=== PATIENT | male | born 2000 | race Two or more races ===

== ENCOUNTER 2022-06-18 21:15 | Emergency (ER) | payer MEDICAID ==
[~2022-06-18] VITALS: Ht 177.8 cm; Wt 65.7 kg
[2022-06-18 21:37] VITALS: BP 128/88
== END 2022-06-18 21:43 | disposition left against medical advice (07) ==
LOC: EDBD 21:15 → ER 21:15
DX: T65.891A Toxic effect of other specified substances, accidental (unintentional), initial encounter (principal); R55 Syncope and collapse; Y92.89 Other specified places as the place of occurrence of the external cause

== ENCOUNTER 2025-05-07 11:03 | Inpatient (IN) | payer MEDICAID ==
[~2025-05-07] VITALS: Ht 177.8 cm; Wt 79.0 kg
[2025-05-07 11:33] VITALS: PULSE 84; RESP 19; O2SAT 96
[2025-05-07] MEDS: ONDANSETRON HCL 4 MG/2 ML VIAL IV ONE ×2 (11:39→15:07)
[2025-05-07] MEDS: MORPHINE SULFATE 4 MG/ML SYR/VIAL IV ONE (11:40)
[2025-05-07] MEDS: SODIUM CHLORIDE 0.9% 1,000 ML IV ONE ×2 (11:41→16:36)
--- NOTE | 2025-05-07 12:12 | DVH ---
tEXAM DESCRIPTION: CT CT AB PEL WO CON-NO ORAL OR IV CLINICAL HISTORY: pancreatitis COMPARISON: None TECHNIQUE: CT abdomen and pelvis without IV contrast was performed. Coronal and sagittal MPR images were generat ed.CTDI/ DLP = / Dose reduction technique with one or more of the following methods was performed: Automated exposure control, adjustment of the mA and/or kV according to patient size, use of iterative reconstruction [place] FINDINGS: Lower chest: Trace left pleural fusion with left basilar subsegmental atelectasis. Liver: Homogenous in attenuation. . Biliary: High density material in the gallbladder, likely vicarious excretion of contrast. Gallbladd er is relatively decompressed. No biliary ductal dilatation. Pancreas: The pancreas is mildly edematous and there is mild peripancreatic fat stranding. Spleen: Normal in size.. Adrenal glands: No nodularity. Kidneys: No nephrolithiasis. No hydroureteronephrosis. . Bladder: No bladder wall thickening. Excreted contrast material in the urinary bladder. Reproductive organs: Normal. Bowel: No bowel wall thickening or dilatation. . Peritoneum: Trace free fluid No free air. Vessels: Normal caliber abdominal aorta. . Lymph nodes: No suspicious lymph nodes. Soft tissues: Unremarkable. . Osseous structures: No acute fracture or subluxation. No suspicious osseous lesions. IMPRESSION: 1. Findings suspicious for acute pancreatitis. Recommend correlation with lipase levels. 2. Trace ascites. 3. Left basilar subsegmental atelectasis with trace left pleural fusion.
[2025-05-07 12:18] LABS: Hematocrit 44.0 % (41.0-53.0); Hemoglobin 15.1 g/dL (13.5-17.5); Mean Corpuscular Hemoglobin 32.8 pg (28.0-32.0); Mean Corpuscular Volume 95.7 fL (80.0-100.0); Nucleated Red Blood Cells % 0.1 %
[2025-05-07 12:38] LABS: Albumin 4.6 g/dL (3.2-4.8); Alkaline Phosphatase 95 U/L (46-116); Anion Gap 12 (5-15); BUN/Creatinine Ratio 8.8 (10.0-20.0); Calcium 9.1 mg/dL (8.7-10.4); Carbon Dioxide 21 mmol/L (20-31); Chloride 102 mmol/L (98-107); Total Protein 6.9 g/dL (5.7-8.2)
[2025-05-07 12:39] LABS: Alanine Aminotransferase 168 U/L (7-40); Blood Urea Nitrogen 7 mg/dL (9-23); Glucose 173 mg/dL (74-106); Lipase 113 U/L (12-53); Potassium 3.3 mmol/L (3.5-5.1); Sodium 135 mmol/L (136-145)
[2025-05-07 12:42] LABS: Bilirubin, Total 3.1 mg/dL (0.2-1.0)
[2025-05-07 14:33] LABS: Urine Protein, UAD Negative (Negative)
--- NOTE | 2025-05-07 14:46 | ED.PDOC ---
GI ASSESSMENT HPI Comments 24-year-old male with no significant past medical history presenting complaining of upper abdominal pain for the last 2 days, associated with nausea and constipation. States he was at [facility] yesterday and was diagnosed with pancreatitis. He does not have [facility] insurance, so recommended for transfer and hospital admission, however he stated he would prefer to be discharged and go to a hospital here where he lives. Pain is localized in the epigastric and left upper quadrant areas, aching and severe. Denies fever, diarrhea or dysuria. Chief Complaint: Abdominal Pain Time Seen by MD: 11:15 Allergies: Coded Allergies: NO KNOWN ALLERGIES (Unverified , 06/18/22) Mode of Arrival: Ambulatory Past Medical History PAST MEDICAL HISTORY: Denies Surgical History: Denies all surgeries Family History Family History: Reviewed,noncontributory to illness Social History Smoker: Other (Positive for vaping) Alcohol: Heavy Drugs: Denies Drug Use Lives In: Home All Other Systems: Reviewed and Negative (Comprehensive systems review obtained and negative except for what is stated in the HPI.) Physical Exam General Appearance: Mild Distress HEENT: Other (Pupils and face symmetric. Moist mucous membranes.) Neck: Full Range of Motion, Normal Inspection Respiratory: Decreased Breath Sounds, No Accessory Muscle Use, No Respiratory Distress, Normal Breath Sounds Cardiovascular: No Edema, No JVD, Regular Rate/Rhythm Breast Exam: Deferred Gastrointestinal: Epigastric, LUQ, Soft, Tenderness Genitalia: Deferred Pelvic: Deferred Rectal: Deferred Extremities: Normal inspection, Normal range of motion, Non-tender, No pedal edema Neurologic: Alert (Oriented x4), Normal Affect, Normal Mood, Other (Ambulatory without difficulty) Cerebellar Function: NOT DONE Reflexes: NOT DONE Skin: Dry, Normal Color, Warm Lymphatic: NOT DONE Was a procedure done? Was a procedure done?: No GI differential Dx Differential Diagnosis: Cholecystitis, Diverticular disease, Gastritis/PUD, Gastroenteritis, Hepatitis, Inflammatory BD, Pancreatitis, UTI, Dehydration, Electrolyte Imbalance, Bacterial, Viral (Biliary obstruction, among others), Renal Failure, Stress Ulcer X-Ray, Labs, Meds, VS Vital Signs Date Time Temp Pulse Resp B/P (MAP) Pulse Ox O2 Delivery O2 Flow Rate FiO2 05/07/25 14:24 85 22 128/75 (92) 97 05/07/25 12:10 94 16 129/64 05/07/25 12:00 94 16 129/64 (85) 97 05/07/25 12:00 99 Room Air* 0 21 05/07/25 11:48 97.7 81 16 133/74 (93) 97 97.7 05/07/25 11:40 84 18 154/79 05/07/25 11:33 84 19 96 Room Air* 0 21 05/07/25 11:04 98.0 106 16 154/79 97 98.0 Lab Test 05/07/25 14:15 05/07/25 12:26 05/07/25 11:26 Range/Units Urine Color Light-yellow Yellow Urine Clarity Clear Clear Urine pH 6.0 5.0-9.0 Urine Specific [place] 1.010 1.001-1.035 Urine Protein Negative Negative Urine Ketones Trace Negative Urine Blood Negative Negative /uL Urine Nitrite Negative Negative Urine Bilirubin Negative Negative Urine Urobilinogen Normal Negative mg/dL Urine Leukocyte Esterase Negative Negative /uL Urine RBC <1 0 - 3 /hpf Urine Microscopic WBC 1 0-3 /HPF Urine Squamous Epithelial Cells Few <5 /hpf Urine Bacteria None seen None Seen /hpf Urine Mucus Few None Seen Urine Glucose Normal Normal mg/dL POC Glucose 98 70-106 mg/dl White Blood Count 14.3 H 4.4-10.8 10^3/uL Red Blood Count 4.60 4.5-5.90 10^6/uL Hemoglobin 15.1 13.5-17.5 g/dL Hematocrit 44.0 41.0-53.0 % Mean Corpuscular Volume 95.7 80.0-100.0 fL Mean Corpuscular Hemoglobin 32.8 H 28.0-32.0 pg Mean Corpuscular Hemoglobin Concent 34.3 32.0-36.0 g/dL Red Cell Distribution Width 14.6 H 11.8-14.3 % Platelet Count 159 140-450 10^3/uL Mean Platelet Volume 10.3 6.9-10.8 fL Neutrophils (%) (Auto) 87.9 H 37.0-80.0 % Lymphocytes (%) (Auto) 4.1 L 10.0-50.0 % Monocytes (%) (Auto) 7.7 0.0-12.0 % Eosinophils (%) (Auto) 0.2 0.0-7.0 % Basophils (%) (Auto) 0.1 0.0-2.0 % Neutrophils # (Auto) 12.6 H 1.6-8.6 10 ^3/uL Lymphocytes # (Auto) 0.6 0.4-5.4 10 ^3/uL Monocytes # (Auto) 1.1 0-1.3 10 ^3/uL Eosinophils # (Auto) 0 0-0.8 10 ^3/uL Basophils # (Auto) 0 0-0.2 10 ^3/uL Nucleated Red Blood Cells 0.1 % Sodium Level 135 L 136-145 mmol/L Potassium Level 3.3 L 3.5-5.1 mmol/L Chloride Level 102 98-107 mmol/L Carbon Dioxide Level 21 20-31 mmol/L Anion Gap 12 5-15 Blood Urea Nitrogen 7 L 9-23 mg/dL Creatinine 0.80 0.700-1.30 mg/dL Glomerular Filtration Rate Calc 127 >90 mL/min BUN/Creatinine Ratio 8.8 L 10.0-20.0 Serum Glucose 173 H 74-106 mg/dL Calcium Level 9.1 8.7-10.4 mg/dL Total Bilirubin 3.1 H 0.2-1.0 mg/dL Aspartate Amino Transferase (AST) 67 H 13-40 U/L Alanine Aminotransferase (ALT) 168 H 7-40 U/L Alkaline Phosphatase 95 46-116 U/L Total Protein 6.9 5.7-8.2 g/dL Albumin 4.6 3.2-4.8 g/dL Lipase 113 H 12-53 U/L Current Medications Medications (Trade) Dose Ordered Sig/Radha Route Start Time Stop Time Status Last Admin Sodium Chloride 1,000 ml @ 1,000 mls/hr Q1H ONCE IV 05/07/25 11:30 05/07/25 12:29 DC 05/07/25 11:41 Ondansetron HCl (Zofran) 4 mg ONCE ONCE IV 05/07/25 11:30 05/07/25 11:31 DC 05/07/25 11:39 Morphine Sulfate 4 mg ONCE ONCE IV 05/07/25 11:30 05/07/25 11:31 DC 05/07/25 11:40 PROCEDURE(s): ABPL - CT AB PEL WO CON-NO ORAL OR IV REASON: pancreatitis ORDER NUMBER(s): [id number], ACCESSION NUMBER(s): [id number] tEXAM DESCRIPTION: CT CT AB PEL WO CON-NO ORAL OR IV CLINICAL HISTORY: pancreatitis COMPARISON: None TECHNIQUE: CT abdomen and pelvis without IV contrast was performed. Coronal and sagittal MPR images were generated.CTDI/ DLP = / Dose reduction technique with one or more of the following methods was per formed: Automated exposure control, adjustment of the mA and/or kV according to patient size, use of iterative reconstruction [place] FINDINGS: Lower chest: Trace left pleural fusion with left basilar subsegmental atelectasis. Liver: Homogenous in attenuation. . Biliary: High density material in the gallbladder, likely vicarious excretion of contrast. Gallbladder is relatively decompressed. No biliary ductal dilatation. Pancreas: The pancreas is mildly edematous and there is mild peripancreatic fat stranding. Spleen: Normal in size.. Adrenal glands: No nodularity. Kidneys: No nephrolithiasis. No hydroureteronephrosis. . Bladder: No bladder wall thickening. Excreted contrast material in the urinary bladder. Reproductive organs: Normal. Bowel: No bowel wall thickening or dilatation. . Peritoneum: Trace free fluid No free air. Vessels: Normal caliber abdominal aorta. . Lymph nodes: No suspicious lymph nodes. Soft tissues: Unremarkable. . Osseous structures: No acute fracture or subluxation. No suspicious osseous lesions. IMPRESSION: 1. Findings suspicious for acute pancreatitis. Recommend correlation with lipase levels. 2. Trace ascites. 3. Left basilar subsegmental atelectasis with trace left pleural fusion. X-Ray, Labs, Meds, VS Comment 24-year-old male with a history of heavy alcohol consumption brought in by self complaining of upper abdominal pain, recently diagnosed with pancreatitis at another facility. Vitals remarkable for BP 154/79 Exam remarkable for epigastric and left upper quadrant tenderness to palpation Rhythm strip independently interpreted by me: Sinus rhythm, rate 84, no ectopy. CT abdomen and pelvis IMPRESSION: 1. Findings suspicious for acute pancreatitis. Recommend correlation with lipase levels. 2. Trace ascites. 3. Left basilar subsegmental atelectasis with trace left pleural fusion. CBC remarkable for WBC 14.3, metabolic panel remarkable for sodium 135, potassium 3.3, AST 67, ALT 168, lipase 113 Patient treated with the following in the ED: 1 L 0.9 normal saline IV bolus, morphine 4 mg IV, Zofran 4 mg IV, fentanyl 25 mcg IV On re-evaluation after morphine, patient states pain had returned, so IV fentanyl was ordered. Vitals were stable. Plan is to admit the patient for pain control and GI evaluation. Time of 1ST Reevaluation: 14:45 Reevaluation 1ST: Improved Patient Education/Counseling: Diagnosis, Treatment, Need For Follow Up Family Education/Counseling: No Family Present SEPSIS Sepsis Screen Date sepsis recognized/suspect: May 07, 2025 Time Sepsis recognized/suspect: 1200 Recent Procedure: No On Antibiotic Therapy: No Respiratory Rate >20: No Heart Rate >90: No Temp<36 C (96.8 F) or >38.3 C: No SBP <90 or MAP <65 mmHG: No New Acute Mental Status Change: No Is the patient on CPAP, BIPAP,: No Physician Orders Ct Ab Pel Wo Con-No Oral Or Iv (05/07/25 11:20) Vital Signs Date Time Temp Pulse Resp B/P (MAP) Pulse Ox O2 Delivery O2 Flow Rate FiO2 05/07/25 14:24 85 22 128/75 (92) 97 05/07/25 12:10 94 16 129/64 05/07/25 12:00 94 16 129/64 (85) 97 05/07/25 12:00 99 Room Air* 0 21 05/07/25 11:48 97.7 81 16 133/74 (93) 97 97.7 05/07/25 11:40 84 18 154/79 05/07/25 11:33 84 19 96 Room Air* 0 21 05/07/25 11:04 98.0 106 16 154/79 97 98.0 Laboratory Tests Test 05/07/25 11:26 White Blood Count 14.3 10^3/uL (4.4-10.8) H Medications Medications Dose Ordered Sig/Radha Route Start Time Stop Time Status Last Admin Dose Admin Morphine Sulfate 4 mg ONCE ONCE IV 05/07/25 11:30 05/07/25 11:31 DC 05/07/25 11:40 Ondansetron HCl 4 mg ONCE ONCE IV 05/07/25 11:30 05/07/25 11:31 DC 05/07/25 11:39 Sodium Chloride 1,000 ml @ 1,000 mls/hr Q1H ONCE IV 05/07/25 11:30 05/07/25 12:29 DC 05/07/25 11:41 Departure 1 Departure Time of Disposition: 14:45 Impression: Primary Impression: Acute pancreatitis Additional Impression: Pleural effusion, left Disposition: 07 LEFT AWOL/ELOPED Admit to: Med Surg Condition: Guarded Critical Care Note Critical Care Time?: No Stability Stability form required: No Heart Score Heart Score: Heart Score Response (Comments) Value History N/A 0 EKG N/A 0 Age N/A 0 Risk Factors N/A 0 Troponin N/A 0 Total 0 HAZEL LE MD May 07, 2025 14:46
--- NOTE | 2025-05-07 14:48 | DVHHP2 ---
Admitting Diagnosis: Abdominal pain History of Present Illness 24-year-old male with no significant past medical history presenting complaining of upper abdominal pain for the last 2 days, associated with nausea and constipation. States he was at [facility] yesterday and was diagnosed with pancreatitis. He does not have [facility] insurance, so recommended for transfer and hospital admission, however he stated he would prefer to be discharged and go to a hospital here where he lives. Pain is localized in the epigastric and left upper quadrant areas, aching and severe. Denies fever, diarrhea or dysuria. Chief Complaint: Abdominal Pain Time Seen by MD: 11:15 Allergies: Coded Allergies: NO KNOWN ALLERGIES (Unverified , 06/18/22) Mode of Arrival: Ambulatory PAST MEDICAL HISTORY: Denies Surgical History: Denies all surgeries Family History: Reviewed,noncontributory to illness Social History Smoker: Other (Positive for vaping) Alcohol: Heavy Drugs: Denies Drug Use Lives In: Home Allergies: Coded Allergies: NO KNOWN ALLERGIES (Unverified , 06/18/22) Vital Signs Vital Signs Date Time Temp Pulse Resp B/P (MAP) Pulse Ox O2 Delivery O2 Flow Rate FiO2 05/07/25 14:24 85 22 128/75 (92) 97 05/07/25 12:00 Room Air* 0 21 05/07/25 11:48 97.7 97.7 Physical Exam Generally-75 years old male, well nourished well developed. Mild distress HEENT-atraumatic, normocephalic Heart-regular rate and rhythm Lungs clear to auscultate bilaterally Abdomen soft, tender epigastrium, nondistended Musculoskeletal-no edema cyanosis Neuro-AO x3, no focal deficit SEPSIS Sepsis Screen Date sepsis recognized/suspect: May 07, 2025 Time Sepsis recognized/suspect: 1200 Recent Procedure: No On Antibiotic Therapy: No Respiratory Rate >20: No Heart Rate >90: No Temp<36 C (96.8 F) or >38.3 C: No SBP <90 or MAP <65 mmHG: No New Acute Mental Status Change: No Is the patient on CPAP, BIPAP,: No Physician Orders Ct Ab Pel Wo Con-No Oral Or Iv (05/07/25 11:20) Vital Signs Date Time Temp Pulse Resp B/P (MAP) Pulse Ox O2 Delivery O2 Flow Rate FiO2 05/07/25 14:24 85 22 128/75 (92) 97 05/07/25 12:10 94 16 129/64 05/07/25 12:00 94 16 129/64 (85) 97 05/07/25 12:00 99 Room Air* 0 21 05/07/25 11:48 97.7 81 16 133/74 (93) 97 97.7 05/07/25 11:40 84 18 154/79 05/07/25 11:33 84 19 96 Room Air* 0 21 05/07/25 11:04 98.0 106 16 154/79 97 98.0 Laboratory Tests Test 05/07/25 11:26 White Blood Count 14.3 10^3/uL (4.4-10.8) H Medications Medications Dose Ordered Sig/Radha Route Start Time Stop Time Status Last Admin Dose Admin Morphine Sulfate 4 mg ONCE ONCE IV 05/07/25 11:30 05/07/25 11:31 DC 05/07/25 11:40 Ondansetron HCl 4 mg ONCE ONCE IV 05/07/25 11:30 05/07/25 11:31 DC 05/07/25 11:39 Sodium Chloride 1,000 ml @ 1,000 mls/hr Q1H ONCE IV 05/07/25 11:30 05/07/25 12:29 DC 05/07/25 11:41 Results Labs Test 05/07/25 14:15 05/07/25 12:26 05/07/25 11:26 Range/Units Urine Color Light-yellow Yellow Urine Clarity Clear Clear Urine pH 6.0 5.0-9.0 Urine Specific [place] 1.010 1.001-1.035 Urine Protein Negative Negative Urine Ketones Trace Negative Urine Blood Negative Negative /uL Urine Nitrite Negative Negative Urine Bilirubin Negative Negative Urine Urobilinogen Normal Negative mg/dL Urine Leukocyte Esterase Negative Negative /uL Urine RBC <1 0 - 3 /hpf Urine Microscopic WBC 1 0-3 /HPF Urine Squamous Epithelial Cells Few <5 /hpf Urine Bacteria None seen None Seen /hpf Urine Mucus Few None Seen Urine Glucose Normal Normal mg/dL POC Glucose 98 70-106 mg/dl White Blood Count 14.3 H 4.4-10.8 10^3/uL Red Blood Count 4.60 4.5-5.90 10^6/uL Hemoglobin 15.1 13.5-17.5 g/dL Hematocrit 44.0 41.0-53.0 % Mean Corpuscular Volume 95.7 80.0-100.0 fL Mean Corpuscular Hemoglobin 32.8 H 28.0-32.0 pg Mean Corpuscular Hemoglobin Concent 34.3 32.0-36.0 g/dL Red Cell Distribution Width 14.6 H 11.8-14.3 % Platelet Count 159 140-450 10^3/uL Mean Platelet Volume 10.3 6.9-10.8 fL Neutrophils (%) (Auto) 87.9 H 37.0-80.0 % Lymphocytes (%) (Auto) 4.1 L 10.0-50.0 % Monocytes (%) (Auto) 7.7 0.0-12.0 % Eosinophils (%) (Auto) 0.2 0.0-7.0 % Basophils (%) (Auto) 0.1 0.0-2.0 % Neutrophils # (Auto) 12.6 H 1.6-8.6 10 ^3/uL Lymphocytes # (Auto) 0.6 0.4-5.4 10 ^3/uL Monocytes # (Auto) 1.1 0-1.3 10 ^3/uL Eosinophils # (Auto) 0 0-0.8 10 ^3/uL Basophils # (Auto) 0 0-0.2 10 ^3/uL Nucleated Red Blood Cells 0.1 % Sodium Level 135 L 136-145 mmol/L Potassium Level 3.3 L 3.5-5.1 mmol/L Chloride Level 102 98-107 mmol/L Carbon Dioxide Level 21 20-31 mmol/L Anion Gap 12 5-15 Blood Urea Nitrogen 7 L 9-23 mg/dL Creatinine 0.80 0.700-1.30 mg/dL Glomerular Filtration Rate Calc 127 >90 mL/min BUN/Creatinine Ratio 8.8 L 10.0-20.0 Serum Glucose 173 H 74-106 mg/dL Calcium Level 9.1 8.7-10.4 mg/dL Total Bilirubin 3.1 H 0.2-1.0 mg/dL Aspartate Amino Transferase (AST) 67 H 13-40 U/L Alanine Aminotransferase (ALT) 168 H 7-40 U/L Alkaline Phosphatase 95 46-116 U/L Total Protein 6.9 5.7-8.2 g/dL Albumin 4.6 3.2-4.8 g/dL Lipase 113 H 12-53 U/L Primary Diagnosis Acute alcoholic pancreatitis Plan Patient was recently in [facility] ED. Ultrasound showed that there were no gallstones. Patient says that he was pain drinking and developed acute appendicitis. Patient currently nausea unable to tolerate p.o. Clear liquid diet water If emesis keep patient NPO IV fluids to 150 cc an hours Pain control Antiemetic Lovenox for DVT prophylaxis PPI for GI prophylaxis Full code Plan discussed with: Patient Problems List: (1) Acute pancreatitis Status: Acute Date of Service: May 07, 2025 Billing Provider: NATHANAEL ERICKSON MD Common Visit Codes: [id number] INP/OBS CARE (HIGH) NATHANAEL ERICKSON MD May 07, 2025 14:48
[2025-05-07] MEDS: fentaNYL CITRATE 100 MCG/2 ML VL IV ONE (15:06)
[2025-05-07] MEDS ORDERED: ONDANSETRON HCL 4 MG/2 ML VIAL IV PRN (15:30)
[2025-05-07] MEDS ORDERED: ACETAMINOPHEN 325 MG TAB PO PRN (15:30)
[2025-05-07 16:23] VITALS: BP 130/75; PULSE 87; PULSE 95; RESP 18; RESP 20; TEMP 99.6; TEMP 99.9; O2SAT 95; O2SAT 98
[2025-05-07] MEDS: HYDROcodone-ACET 5/325MG TAB PO PRN (17:11)
[2025-05-07 20:00] VITALS: PULSE 91; RESP 18; O2SAT 99
[2025-05-07 21:00] VITALS: BP 117/69; PULSE 91; RESP 18; TEMP 99.1; O2SAT 99
[2025-05-07] MEDS: SODIUM CHLOR 0.9% PF (SALINE LOCK) 10ML VIAL/SYR IV SCH (21:14)
[2025-05-08] VITALS (7 sets, daily range): BP systolic 118–133; BP diastolic 75–85; PULSE 77–108; RESP 16–20; TEMP 97.6–99.7; O2SAT 94–98
[2025-05-08] MEDS: POTASSIUM CHL 20 Meq TABLET PO ONE (03:14)
[2025-05-08 07:20] LABS: Hematocrit 40.8 % (41.0-53.0); Hemoglobin 14.0 g/dL (13.5-17.5); Mean Corpuscular Hemoglobin 32.8 pg (28.0-32.0); Mean Corpuscular Volume 95.7 fL (80.0-100.0); Nucleated Red Blood Cells % 0.0 %
[2025-05-08 07:44] LABS: Albumin 4.2 g/dL (3.2-4.8); Alkaline Phosphatase 89 U/L (46-116); Anion Gap 10 (5-15); BUN/Creatinine Ratio 7.9 (10.0-20.0); Calcium 9.2 mg/dL (8.7-10.4); Carbon Dioxide 25 mmol/L (20-31); Chloride 101 mmol/L (98-107); Glucose 91 mg/dL (74-106); Potassium 4.1 mmol/L (3.5-5.1); Sodium 136 mmol/L (136-145); Total Protein 6.5 g/dL (5.7-8.2)
[2025-05-08 07:47] LABS: Alanine Aminotransferase 121 U/L (7-40); Bilirubin, Total 3.3 mg/dL (0.2-1.0); Blood Urea Nitrogen 6 mg/dL (9-23); Magnesium 1.6 mg/dL (1.6-2.6)
[2025-05-08] MEDS: ENOXAPARIN SOD 40 MG/0.4 ML SYRINGE SC SCH (09:25)
--- NOTE | 2025-05-08 12:41 | DVHPN2 ---
Reviewed: Care Plan, H&P, Labs, Medications, Previous Orders, Radiology Changes from previous H/P or p: No Changes Objective Vitals Vital Signs Date Time Temp Pulse Resp B/P (MAP) Pulse Ox O2 Delivery O2 Flow Rate FiO2 05/08/25 09:21 99.2 90 20 128/83 (98) 97 99.2 05/08/25 08:00 Room Air* 0 21 Intake/Output Intake and Output 05/08/25 07:00 Intake Total 600 ml Output Total 500 ml Balance 100 ml Intake Oral 600 ml Output Urine Total 500 ml # Voids 3 Medications Current Medications Medications Dose Ordered Sig/Radha Route Start Time Stop Time Status Last Admin Dose Admin Sodium Chloride 10 ml Q8HR IV 05/07/25 22:00 05/08/25 05:18 10 ML Docusate Sodium 100 mg BIDPRN PRN PO 05/07/25 15:30 Acetaminophen 650 mg Q6HP PRN PO 05/07/25 15:30 Acetaminophen/ Hydrocodone Bitart 1 tab Q4HP PRN PO 05/07/25 15:30 05/08/25 10:04 1 TAB Ondansetron HCl 4 mg Q4HP PRN IV 05/07/25 15:30 Enoxaparin Sodium 40 mg DAILY SC 05/08/25 10:00 Laboratory Results Laboratory Tests 05/08/25 05:53 Chemistry Test 05/08/25 05:53 Albumin 4.2 g/dL (3.2-4.8) Calcium Level 9.2 mg/dL (8.7-10.4) Magnesium Level 1.6 mg/dL (1.6-2.6) Total Protein 6.5 g/dL (5.7-8.2) LFT Test 05/08/25 05:53 Alanine Aminotransferase (ALT) 121 U/L (7-40) H Alkaline Phosphatase 89 U/L (46-116) Aspartate Amino Transferase (AST) 45 U/L (13-40) H Total Bilirubin 3.3 mg/dL (0.2-1.0) H Urinalysis Test 05/07/25 14:15 Urine Color Light-yellow (Yellow) Urine Clarity Clear (Clear) Urine pH 6.0 (5.0-9.0) Urine Specific [place] 1.010 (1.001-1.035) Urine Protein Negative (Negative) Urine Ketones Trace (Negative) Urine Blood Negative /uL (Negative) Urine Nitrite Negative (Negative) Urine Bilirubin Negative (Negative) Urine Urobilinogen Normal mg/dL (Negative) Urine Leukocyte Esterase Negative /uL (Negative) Urine RBC <1 /hpf (0 - 3) Urine Microscopic WBC 1 /HPF (0-3) Urine Squamous Epithelial Cells Few /hpf (<5) Urine Bacteria None seen /hpf (None Seen) Urine Mucus Few (None Seen) Urine Glucose Normal mg/dL (Normal) Labs and/or images reviewed: Labs reviewed by me, Image(s) reviewed by me Assessment/Plan Assessment/Plan Acute pancreatitis with lipase of 113: NPO IV fluids pain medications GI consult for Dr. Harsh Jerome Systemic inflammatory response syndrome with WBC 14.3 History of alcohol abuse: Check urine drug screen and alcohol level Recently seen at [facility] 3 days ago Acute dehydration: IV fluids Liquid diet Plan discussed with: Patient My Orders Orders - BETTY BARBA MD Procedure Category Date Status Time Drug Screen LAB 05/08/25 Logged 12:32 Blood Alcohol LAB 05/08/25 Logged 12:32 Date of Service: May 08, 2025 Billing Provider: BETTY BARBA MD Common Visit Codes: [id number] INP/OBS CARE(HIGH) BETTY BARBA MD May 08, 2025 12:41
--- NOTE | 2025-05-08 13:42 | DVHINCON2 ---
Date of service: May 08, [address] Micah Donnelly Reason for Consultation Pancreatitis History of Present Illness 24-year-old male presented to ER complaining of upper abdominal pain for the last 2 days, associated with nausea and constipation. States he was at [facility] yesterday and was diagnosed with pancreatitis. He does not have [facility] insurance, so recommended for transfer and hospital admission, however he stated he would prefer to be discharged and go to a hospital here where he lives. Pain is localized in the epigastric and left upper quadrant areas, aching and severe. Denies fever, diarrhea or dysuria. Past Medical History Negative Past Surgical History Negative Family History: Patient reports no known family medical history. Social History Social History Smoker: Other (Positive for vaping) Alcohol: Heavy Drugs: Denies Drug Use Lives In: Home Allergies: Coded Allergies: NO KNOWN ALLERGIES (Unverified , 06/18/22) Current Medications Current Medications Medications (Trade) Dose Ordered Sig/Radha Route PRN Reason Start Time Stop Time Status Last Admin Sodium Chloride (Saline Lock Ns) 10 ml Q8HR IV 05/07/25 22:00 05/08/25 05:18 Docusate Sodium (Colace Capsule) 100 mg BIDPRN PRN PO FOR CONSTIPATION 05/07/25 15:30 Acetaminophen (Tylenol Tablet) 650 mg Q6HP PRN PO PAIN SCALE 1-3 OR TEMP>100.4 05/07/25 15:30 Acetaminophen/ Hydrocodone Bitart ([place] 5/325MG Tab) 1 tab Q4HP PRN PO MODERATE PAIN (4-6 PAIN SCALE) 05/07/25 15:30 05/08/25 10:04 Ondansetron HCl (Zofran) 4 mg Q4HP PRN IV NAUSEA / VOMITING 05/07/25 15:30 Enoxaparin Sodium (Lovenox) 40 mg DAILY SC 05/08/25 10:00 Sodium Chloride 1,000 ml @ 150 mls/hr Q6H40M IV 05/08/25 13:15 Vital Signs Vital Signs Date Time Temp Pulse Resp B/P (MAP) Pulse Ox O2 Delivery O2 Flow Rate FiO2 05/08/25 09:21 99.2 90 20 128/83 (98) 97 99.2 05/08/25 08:00 Room Air* 0 21 Physical Exam Generally-Well nourished well developed. No distress HEENT-atraumatic, normocephalic Heart-regular rate and rhythm Lungs clear to auscultate bilaterally Abdomen soft, tender epigastrium, nondistended Musculoskeletal-no edema cyanosis Neuro-AO x3, no focal deficit Labs/Diagnostic Data Labs Test 05/08/25 05:53 05/07/25 14:15 05/07/25 12:26 05/07/25 11:26 Range/Units White Blood Count 14.0 H 4.4-10.8 10^3/uL Red Blood Count 4.26 L 4.5-5.90 10^6/uL Hemoglobin 14.0 13.5-17.5 g/dL Hematocrit 40.8 L 41.0-53.0 % Mean Corpuscular Volume 95.7 80.0-100.0 fL Mean Corpuscular Hemoglobin 32.8 H 28.0-32.0 pg Mean Corpuscular Hemoglobin Concent 34.3 32.0-36.0 g/dL Red Cell Distribution Width 14.3 11.8-14.3 % Platelet Count 144 140-450 10^3/uL Mean Platelet Volume 10.4 6.9-10.8 fL Neutrophils (%) (Auto) 84.0 H 37.0-80.0 % Lymphocytes (%) (Auto) 5.1 L 10.0-50.0 % Monocytes (%) (Auto) 10.3 0.0-12.0 % Eosinophils (%) (Auto) 0.4 0.0-7.0 % Basophils (%) (Auto) 0.2 0.0-2.0 % Neutrophils # (Auto) 11.8 H 1.6-8.6 10 ^3/uL Lymphocytes # (Auto) 0.7 0.4-5.4 10 ^3/uL Monocytes # (Auto) 1.4 H 0-1.3 10 ^3/uL Eosinophils # (Auto) 0.1 0-0.8 10 ^3/uL Basophils # (Auto) 0 0-0.2 10 ^3/uL Nucleated Red Blood Cells 0.0 % Sodium Level 136 136-145 mmol/L Potassium Level 4.1 3.5-5.1 mmol/L Chloride Level 101 98-107 mmol/L Carbon Dioxide Level 25 20-31 mmol/L Anion Gap 10 5-15 Blood Urea Nitrogen 6 L 9-23 mg/dL Creatinine 0.76 0.700-1.30 mg/dL Glomerular Filtration Rate Calc 129 >90 mL/min BUN/Creatinine Ratio 7.9 L 10.0-20.0 Serum Glucose 91 74-106 mg/dL Calcium Level 9.2 8.7-10.4 mg/dL Magnesium Level 1.6 1.6-2.6 mg/dL Total Bilirubin 3.3 H 0.2-1.0 mg/dL Aspartate Amino Transferase (AST) 45 H 13-40 U/L Alanine Aminotransferase (ALT) 121 H 7-40 U/L Alkaline Phosphatase 89 46-116 U/L Total Protein 6.5 5.7-8.2 g/dL Albumin 4.2 3.2-4.8 g/dL Plasma/Serum Blood Alcohol < 3.0 <10 mg/dL Urine Color Light-yellow Yellow Urine Clarity Clear Clear Urine pH 6.0 5.0-9.0 Urine Specific [place] 1.010 1.001-1.035 Urine Protein Negative Negative Urine Ketones Trace Negative Urine Blood Negative Negative /uL Urine Nitrite Negative Negative Urine Bilirubin Negative Negative Urine Urobilinogen Normal Negative mg/dL Urine Leukocyte Esterase Negative Negative /uL Urine RBC <1 0 - 3 /hpf Urine Microscopic WBC 1 0-3 /HPF Urine Squamous Epithelial Cells Few <5 /hpf Urine Bacteria None seen None Seen /hpf Urine Mucus Few None Seen Urine Glucose Normal Normal mg/dL POC Glucose 98 70-106 mg/dl Lipase 113 H 12-53 U/L ABD PELVIC CT Peripancreatic trending and pancreatic edema IMPRESSION: 1. Findings suspicious for acute pancreatitis. Recommend correlation with lipase levels. 2. Trace ascites. 3. Left basilar subsegmental atelectasis with trace left pleural fusion. Problems(with codes): (1) Gallbladder sludge (2) Alcohol abuse (3) Elevated liver enzymes (4) Acute pancreatitis (5) Pleural effusion, left Plan/Recommendation Assessment plan Likely pancreatitis related to alcohol use and vaping Differential diagnosis could include gallbladder disease as there was some vicarious material in his gallbladder on CT and liver enzymes are elevated Check right upper quadrant ultrasound Monitor liver enzymes and trend Consider MRCP pending results of ultrasound and if liver enzymes worsen Discontinue alcohol and smoking cessation NPO, IV fluid hydration Plan discussed with: Other (Dr Donnelly) MAGGIE HUTTON MD May 08, 2025 13:42
[2025-05-08] MEDS: SODIUM CHLORIDE 0.9% 1,000 ML IV SCH (14:30)
--- NOTE | 2025-05-08 14:40 | DVH ---
INDICATION: elevated liver tests TECHNIQUE: Multiple real-time sonographic images of the abdomen were obtained. COMPARISON: None FINDINGS: Steatosis of the hepatic parenchyma The liver measures 17.07 cm. No intrahepatic biliary d uctal dilatation is noted. The gallbladder wall measures 0.14 cm and is unremarkable. No gallstones or sludge is seen. The co mmon duct not visible No pericholecystic fluid is noted. The right kidney measures 10.24 cm. No hydronephrosis. The pancreas is not well visualized due to obscuration from bowel gas. The visualized portions of the IVC and aorta are grossly unremarkable. IMPRESSION: 1. Liver measures 17.07 cm long with changes to the parenchyma suggesting steatosis 2. 2. No cholelithiasis or thickened gallbladder wall. Negative sonographic Ramirez's sign 3. Right kidney measures 10.24 cm long. HS:Y
[2025-05-08] MEDS: DOCUSATE SOD 100 MG CAP PO PRN (22:00)
[2025-05-09] VITALS (7 sets, daily range): BP systolic 125–155; BP diastolic 71–77; PULSE 81–102; RESP 14–18; TEMP 36.7; O2SAT 94–97
[2025-05-09 05:40] LABS: Hematocrit 37.5 % (41.0-53.0); Hemoglobin 13.2 g/dL (13.5-17.5); Mean Corpuscular Hemoglobin 33.3 pg (28.0-32.0); Mean Corpuscular Volume 94.9 fL (80.0-100.0); Nucleated Red Blood Cells % 0.0 %
[2025-05-09 06:02] LABS: Albumin 4.1 g/dL (3.2-4.8); Alkaline Phosphatase 86 U/L (46-116); Amylase 43 U/L (30-118); Anion Gap 9 (5-15); Calcium 9.1 mg/dL (8.7-10.4); Carbon Dioxide 26 mmol/L (20-31); Chloride 101 mmol/L (98-107); Glucose 93 mg/dL (74-106); Lipase 46 U/L (12-53); Magnesium 1.7 mg/dL (1.6-2.6); Potassium 3.9 mmol/L (3.5-5.1); Sodium 136 mmol/L (136-145); Total Protein 6.3 g/dL (5.7-8.2)
[2025-05-09 06:03] LABS: Alanine Aminotransferase 82 U/L (7-40); Bilirubin, Total 2.5 mg/dL (0.2-1.0); Blood Urea Nitrogen 6 mg/dL (9-23)
[2025-05-09 06:17] LABS: BUN/Creatinine Ratio 8.6 (10.0-20.0)
--- NOTE | 2025-05-09 08:11 | DVHPN2 ---
Reviewed: Care Plan, H&P, Labs, Medications, Previous Orders, Radiology Changes from previous H/P or p: No Changes Objective Vitals Vital Signs Date Time Temp Pulse Resp B/P (MAP) Pulse Ox O2 Delivery O2 Flow Rate FiO2 05/09/25 04:40 98.6 81 16 131/73 (92) 97 98.6 05/08/25 20:00 Room Air* 0 21 Intake/Output Intake and Output 05/09/25 07:00 Intake Total 2500 ml Balance 2500 ml Intake Oral 1500 ml IV Total 1000 ml # Voids 10 Medications Current Medications Medications Dose Ordered Sig/Radha Route Start Time Stop Time Status Last Admin Dose Admin Sodium Chloride 10 ml Q8HR IV 05/07/25 22:00 05/09/25 05:35 10 ML Docusate Sodium 100 mg BIDPRN PRN PO 05/07/25 15:30 05/08/25 22:00 100 MG Acetaminophen 650 mg Q6HP PRN PO 05/07/25 15:30 Acetaminophen/ Hydrocodone Bitart 1 tab Q4HP PRN PO 05/07/25 15:30 05/09/25 04:16 1 TAB Ondansetron HCl 4 mg Q4HP PRN IV 05/07/25 15:30 Enoxaparin Sodium 40 mg DAILY SC 05/08/25 10:00 Sodium Chloride 1,000 ml @ 150 mls/hr Q6H40M IV 05/08/25 13:15 05/08/25 19:53 150 MLS/HR Pantoprazole Sodium 40 mg DAILY IV 05/09/25 10:00 Laboratory Results Laboratory Tests 05/09/25 04:54 Chemistry Test 05/09/25 04:54 Albumin 4.1 g/dL (3.2-4.8) Calcium Level 9.1 mg/dL (8.7-10.4) Magnesium Level 1.7 mg/dL (1.6-2.6) Total Protein 6.3 g/dL (5.7-8.2) Lipid panel Test 05/09/25 04:54 Lipase 46 U/L (12-53) LFT Test 05/09/25 04:54 Alanine Aminotransferase (ALT) 82 U/L (7-40) H Alkaline Phosphatase 86 U/L (46-116) Aspartate Amino Transferase (AST) 30 U/L (13-40) Total Bilirubin 2.5 mg/dL (0.2-1.0) H Urinalysis Test 05/07/25 14:15 Urine Color Light-yellow (Yellow) Urine Clarity Clear (Clear) Urine pH 6.0 (5.0-9.0) Urine Specific [place] 1.010 (1.001-1.035) Urine Protein Negative (Negative) Urine Ketones Trace (Negative) Urine Blood Negative /uL (Negative) Urine Nitrite Negative (Negative) Urine Bilirubin Negative (Negative) Urine Urobilinogen Normal mg/dL (Negative) Urine Leukocyte Esterase Negative /uL (Negative) Urine RBC <1 /hpf (0 - 3) Urine Microscopic WBC 1 /HPF (0-3) Urine Squamous Epithelial Cells Few /hpf (<5) Urine Bacteria None seen /hpf (None Seen) Urine Mucus Few (None Seen) Urine Glucose Normal mg/dL (Normal) Labs and/or images reviewed: Labs reviewed by me, Image(s) reviewed by me Assessment/Plan Assessment/Plan Acute pancreatitis with lipase of 113: NPO IV fluids pain medications GI consult for Dr. Harsh Jerome appreciated, hepatitis panel pending, lipase normal Systemic inflammatory response syndrome with WBC 14.3 History of alcohol abuse: Check urine drug screen and alcohol level Recently seen at [facility] [address] abdomen pelvis without contrast shows acute pancreatitis Elevated liver enzymes secondary to alcohol abuse trending down Acute dehydration: IV fluids Right upper quadrant ultrasound negative for gallbladder pathology Tolerating regular diet feels better with less pain and is being discharged home Plan discussed with: Patient My Orders Orders - BETTY BARBA MD Procedure Category Date Status Time Drug Screen LAB 05/08/25 Logged 12:32 * [facility] [employer] CONS 05/08/25 Transmitted 12:41 Sodium Chloride 0.9% PHA 05/08/25 In Process 13:15 Date of Service: May 09, 2025 Billing Provider: BETTY BARBA MD Common Visit Codes: [id number] INP/OBS CARE(HIGH) BETTY BARBA MD May 09, 2025 08:11
[2025-05-09] MEDS ORDERED: HYDR-4902 PO (08:12)
[2025-05-09] MEDS ORDERED: PANT40T PO (08:12)
--- NOTE | 2025-05-09 08:19 | DVHDS2 ---
Discharge Summary Date of Admission May 07, 2025 at 15:18 Date of Discharge: May 09, 2025 Admitting Diagnosis Abdominal pain Wounds: None Labs/Diagnostic Data: Laboratory Results Test 05/09/25 04:54 05/08/25 05:53 05/07/25 14:15 05/07/25 12:26 White Blood Count 11.2 10^3/uL (4.4-10.8) Red Blood Count 3.96 10^6/uL (4.5-5.90) Hemoglobin 13.2 g/dL (13.5-17.5) Hematocrit 37.5 % (41.0-53.0) Mean Corpuscular Volume 94.9 fL (80.0-100.0) Mean Corpuscular Hemoglobin 33.3 pg (28.0-32.0) Mean Corpuscular Hemoglobin Concent 35.1 g/dL (32.0-36.0) Red Cell Distribution Width 14.1 % (11.8-14.3) Platelet Count 152 10^3/uL (140-450) Mean Platelet Volume 9.8 fL (6.9-10.8) Neutrophils (%) (Auto) 79.3 % (37.0-80.0) Lymphocytes (%) (Auto) 7.2 % (10.0-50.0) Monocytes (%) (Auto) 11.9 % (0.0-12.0) Eosinophils (%) (Auto) 1.4 % (0.0-7.0) Basophils (%) (Auto) 0.2 % (0.0-2.0) Neutrophils # (Auto) 8.9 10 ^3/uL (1.6-8.6) Lymphocytes # (Auto) 0.8 10 ^3/uL (0.4-5.4) Monocytes # (Auto) 1.3 10 ^3/uL (0-1.3) Eosinophils # (Auto) 0.2 10 ^3/uL (0-0.8) Basophils # (Auto) 0 10 ^3/uL (0-0.2) Nucleated Red Blood Cells 0.0 % Sodium Level 136 mmol/L (136-145) Potassium Level 3.9 mmol/L (3.5-5.1) Chloride Level 101 mmol/L (98-107) Carbon Dioxide Level 26 mmol/L (20-31) Anion Gap 9 (5-15) Blood Urea Nitrogen 6 mg/dL (9-23) Creatinine 0.70 mg/dL (0.700-1.30) Glomerular Filtration Rate Calc 132 mL/min (>90) BUN/Creatinine Ratio 8.6 (10.0-20.0) Serum Glucose 93 mg/dL (74-106) Calcium Level 9.1 mg/dL (8.7-10.4) Magnesium Level 1.7 mg/dL (1.6-2.6) Total Bilirubin 2.5 mg/dL (0.2-1.0) Aspartate Amino Transferase (AST) 30 U/L (13-40) Alanine Aminotransferase (ALT) 82 U/L (7-40) Alkaline Phosphatase 86 U/L (46-116) Total Protein 6.3 g/dL (5.7-8.2) Albumin 4.1 g/dL (3.2-4.8) Amylase Level 43 U/L (30-118) Lipase 46 U/L (12-53) Plasma/Serum Blood Alcohol < 3.0 mg/dL (<10) Urine Color Light-yellow (Yellow) Urine Clarity Clear (Clear) Urine pH 6.0 (5.0-9.0) Urine Specific [place] 1.010 (1.001-1.035) Urine Protein Negative (Negative) Urine Ketones Trace (Negative) Urine Blood Negative /uL (Negative) Urine Nitrite Negative (Negative) Urine Bilirubin Negative (Negative) Urine Urobilinogen Normal mg/dL (Negative) Urine Leukocyte Esterase Negative /uL (Negative) Urine RBC <1 /hpf (0 - 3) Urine Microscopic WBC 1 /HPF (0-3) Urine Squamous Epithelial Cells Few /hpf (<5) Urine Bacteria None seen /hpf (None Seen) Urine Mucus Few (None Seen) Urine Glucose Normal mg/dL (Normal) POC Glucose 98 mg/dl (70-106) Other Laboratory Tests 05/09/25 04:54 Brief Hx & Hospital Course: 24-year-old male with a history of chronic alcohol abuse came in complaining of pain in the epigastric area found to have acute pancreatitis with a lipase 113 treated with a NPO IV fluids pain medications slightly engaged WBC 14.3 possible systemic inflammatory response syndrome. The patient was recently seen at [facility] three days back CT abdomen pelvis without contrast shows acute pancreatitis . Mild elevated liver enzymes secondary to alcohol abuse and they are trending down lipase is normal at the time of discharge Invanz treated with the pantoprazole and [place] seen by GI Dr. Harsh Jerome. Hepatitis panel pending. Gallbladder pathology negative patient feels better with mild pain and able to tolerate soft diet being discharged home advised to quit using alcohol prescription for pantoprazole iron and [place] transmitted to [facility] he will follow up with the GI Dr. Harsh Jerome for the hepatitis panel result Consults/Reason for consult GI Dr. Harsh Jerome Operations or Procedures CT abdomen pelvis without contrast Gallbladder ultrasound Condition at Discharge: Fair Final Diagnosis/Problems List Acute pancreatitis with lipase of 113: NPO IV fluids pain medications GI consult for Dr. 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 Follow Up/Referral: Stop drinking alcohol Follow up with the GI Dr. Harsh Jerome for the pending hepatitis panel result Use medications as prescribed Medications: Pantoprazole [place] Transmitted to [facility] pharmacy Scheduled Pantoprazole Sodium Sesquihydr (Pantoprazole Sodium), 40 MG PO BID Scheduled PRN Hydrocodone-Acetaminophen (Hydrocodone Bitartrate/AC 5-325 mg), 1 TAB PO QID PRN 39 (Time taken for discharge summary 39 minutes) Discharge Statement: "Patient was advised to return to the ER or call 911 if any headaches, dizziness, shortness of breath, chest pain, abdominal pain, bleeding, fevers, or worsening of medical condition. Patient was counseled about treatment plan, medications, possible side effects, patientverbalized understanding. All questions were answered to the best of my ability. This discharge took greater then 30 minutes in planning, reviewing documentation, counseling the patient, and discussing with other team members." ASSESSMENT ASSESSMENT Hospital Course Improved Assessment Acute pancreatitis with lipase of 113: NPO IV fluids pain medications GI consult for Dr. Harsh Jerome appreciated, hepatitis panel pending, lipase normal Systemic inflammatory response syndrome with WBC 14.3 History of alcohol abuse: Check urine drug screen and alcohol level Recently seen at [facility] [address] abdomen pelvis without contrast shows acute pancreatitis Elevated liver enzymes secondary to alcohol abuse trending down Acute dehydration: IV fluids Right upper quadrant ultrasound negative for gallbladder pathology Date of Service: May 09, 2025 Billing Provider: BETTY BARBA MD Common Visit Codes: [id number] DISCH DAY >30min BETTY BARBA MD May 09, 2025 08:19
[2025-05-09] MEDS: PANTOPRAZOLE 40 MG/10 ML VIAL INJ IV SCH (08:33)
[2025-05-09 11:20] LABS: Hepatitis A Total Antibody Positive (Negative); Hepatitis B Surface Antigen Negative (Negative); Hepatitis C Antibody Negative (Negative)
== END 2025-05-09 19:55 | disposition home or self-care (01) | DRG 282 ==
LOC: ER 11:03 → OVERFLOW 15:18 → CENTRAL 16:23
PROVIDERS: ADMIT Family Medicine; ATTEND Family Medicine
DX: K85.90 Acute pancreatitis without necrosis or infection, unspecified (principal); R65.10 Systemic inflammatory response syndrome (SIRS) of non-infectious origin without acute organ dysfunction; E86.0 Dehydration; F10.10 Alcohol abuse, uncomplicated; R74.8 Abnormal levels of other serum enzymes; F17.200 Nicotine dependence, unspecified, uncomplicated; Y90.0 Blood alcohol level of less than 20 mg/100 ml
CPT/HCPCS: 36415; 74176; 76705; 80053; 80320; 81001; 82150; 82962; 83690; 83735; 85025; 86704; 86706; 86708; 86803; 87340; 96361; 96374; 96375; G0378; J2405; J2470